=== PATIENT | female | born 1975 ===

== ENCOUNTER 2017-04-13 08:30 | Outpatient (RCR) | payer BC | END 2017-05-08 | disposition home or self-care (01) | LOC: WCC 08:30 | DX: T86.821 Skin graft (allograft) (autograft) failure (principal); C50.411 Malignant neoplasm of upper-outer quadrant of right female breast; Z91.013 Allergy to seafood; Z88.8 Allergy status to other drugs, medicaments and biological substances; Z90.13 Acquired absence of bilateral breasts and nipples | CPT/HCPCS: G0277; G0463; 99204 ==